=== PATIENT | female | born 1970 | race American Indian/Alaskan Native ===

== ENCOUNTER 2020-09-25 14:06 | Emergency (ER) | payer SELFPAY ==
--- NOTE | 2020-09-25 17:14 | Emergency Department Report ---
ED General Adult HPI - General Chief complaint: Allergic Reaction Stated complaint: ALLERGIC REACTION Time Seen by Provider: 09/25/20 14:55 Source: patient Mode of arrival: Ambulatory Limitations: No Limitations - History of Present Illness Initial comments: 49-year-old -[place] female patient presents with complaints of allergic reaction to eyebrow diet x3 days. Patient states the dye was applied to her eyebrows 5 days ago and she began experiencing itching and swelling to her eyebrows 2 days later. She states there is now mild pain and her eyes are swollen shut. She denies any chest pain, shortness of breath, difficulty swallowing, or rash. - Related Data Previous Rx's Medication Instructions Recorded Last Taken Type Famotidine [Pepcid] 20 mg PO BID 10 Days #20 tablet 09/25/20 Unknown Rx Loratadine 10 mg PO QDAY 10 Days #10 tablet 09/25/20 Unknown Rx Prednisone [predniSONE 10 mg 10 mg PO .TAPER #1 tab.ds.pk 09/25/20 Unknown Rx (6-Day Pack, 21 Tabs)] Allergies Allergy/AdvReac Type Severity Reaction Status Date / Time cephalexin [From Keflex] Allergy Itching Verified 09/25/20 14:18 ED Review of Systems ROS: Stated complaint: ALLERGIC REACTION Other details as noted in HPI Constitutional: denies: diaphoresis, fever, malaise, weakness ENT: denies: throat pain Respiratory: denies: cough, shortness of breath Cardiovascular: denies: chest pain Gastrointestinal: denies: abdominal pain, nausea, vomiting Skin: pruritus. denies: rash, change in color Neurological: denies: numbness, paresthesias Hematological/Lymphatic: denies: swollen glands ED Past Medical Hx - Past Medical History Previous Medical History?: No - Medications Home Medications: Home Medications Medication Instructions Recorded Confirmed Last Taken Type Famotidine [Pepcid] 20 mg PO BID 10 Days #20 tablet 09/25/20 Unknown Rx Loratadine 10 mg PO QDAY 10 Days #10 tablet 09/25/20 Unknown Rx Prednisone [predniSONE 10 mg 10 mg PO .TAPER #1 tab.ds.pk 09/25/20 Unknown Rx (6-Day Pack, 21 Tabs)] ED Physical Exam - General Limitations: No Limitations General appearance: alert, in no apparent distress - Head Head exam: Present: atraumatic, normocephalic - Eye Eye exam: Present: PERRL, EOMI, periorbital swelling, periorbital tenderness (Angioedema of the eyes noted bilaterally left worse than right without surrounding erythema or cellulitis). Absent: scleral icterus, conjunctival injection - ENT ENT exam: Present: normal exam, normal orophraynx - Neck Neck exam: Present: normal inspection, full ROM. Absent: lymphadenopathy - Respiratory Respiratory exam: Present: normal lung sounds bilaterally. Absent: respiratory distress - Cardiovascular Cardiovascular Exam: Present: regular rate, normal rhythm. Absent: systolic murmur, diastolic murmur, rubs, gallop - Extremities Exam Extremities exam: Present: normal inspection, full ROM - Neurological Exam Neurological exam: Present: alert, oriented X3, normal gait - Psychiatric Psychiatric exam: Present: normal affect, normal mood - Skin Skin exam: Present: warm, dry, intact, normal color. Absent: rash, erythema, ecchymosis ED Course Vital Signs 09/25/20 14:19 Temperature 98 F Pulse Rate 70 Respiratory 16 Rate Blood Pressure 167/98 [Right] O2 Sat by Pulse 98 Oximetry ED Medical Decision Making - Lab Data Result diagrams: 09/25/20 17:28 09/25/20 17:28 Lab Results 09/25/20 09/25/20 Range/Units 17:28 17:28 WBC 9.1 (4.5-11.0) K/mm3 RBC 4.12 (3.65-5.03) M/mm3 Hgb 12.2 (10.1-14.3) gm/dl Hct 34.6 (30.3-42.9) % MCV 84 (79-97) fl MCH 30 (28-32) pg MCHC 35 H (30-34) % RDW 14.3 (13.2-15.2) % Plt Count 285 (140-440) K/mm3 Lymph % (Auto) 32.7 (13.4-35.0) % [place] % (Auto) 6.5 (0.0-7.3) % Eos % (Auto) 2.2 (0.0-4.3) % Baso % (Auto) 0.4 (0.0-1.8) % Lymph # (Auto) 3.0 (1.2-5.4) K/mm3 [place] # (Auto) 0.6 (0.0-0.8) K/mm3 Eos # (Auto) 0.2 (0.0-0.4) K/mm3 Baso # (Auto) 0.0 (0.0-0.1) K/mm3 Seg Neutrophils % 58.2 (40.0-70.0) % Seg Neutrophils # 5.3 (1.8-7.7) K/mm3 Sodium 140 (137-145) mmol/L Potassium 4.4 (3.6-5.0) mmol/L Chloride 103.9 (98-107) mmol/L Carbon Dioxide 24 (22-30) mmol/L Anion Gap 17 mmol/L BUN 12 (7-17) mg/dL Creatinine 0.7 (0.6-1.2) mg/dL Estimated GFR > 60 ml/min BUN/Creatinine Ratio 17 % Glucose 84 (65-100) mg/dL Calcium 9.6 (8.4-10.2) mg/dL Total Bilirubin 0.30 (0.1-1.2) mg/dL AST 43 H (5-40) units/L ALT 48 (7-56) units/L Alkaline Phosphatase 97 (35-129) units/L Total Protein 7.2 (6.3-8.2) g/dL Albumin 4.4 (3.9-5) g/dL Albumin/Globulin Ratio 1.6 % - Medical Decision Making 49-year-old -[place] female patient presents with complaints of allergic reaction to eyebrow diet x3 days. Patient states the dye was applied to her eyebrows 5 days ago and she began experiencing itching and swelling to her eyebrows 2 days later. She states there is now mild pain and her eyes are swollen shut. She denies any chest pain, shortness of breath, difficulty swallowing, or rash. Patient given IV Decadron, Pepcid, and Benadryl. Swelling around eyes has improved. Swelling around eyes appears to be dependent given improvement with lying back. Itching is controlled. Topical triamcinolone also applied. CBC, CMP, ESR normal. She continues to deny any chest pain, shortness of breath, dysphagia or other symptoms. She is well-appearing and stable for discharge home. Prescription for prednisone, Pepcid, and Claritin given for home. Discussed signs and symptoms that should prompt immediate return to the emergency department in detail with patient who verbalized understanding. Follow-up with primary care provider in 3 days. Critical care attestation.: If time is entered above; I have spent that time in minutes in the direct care of this critically ill patient, excluding procedure time. ED Disposition Clinical Impression: Contact allergic reaction, Angioedema Disposition: - TO HOME OR SELFCARE Is pt being admited?: No Condition: Stable Instructions: Contact Dermatitis, Angioedema Prescriptions: Loratadine 10 mg PO QDAY 10 Days #10 tablet Famotidine [Pepcid] 20 mg PO BID 10 Days #20 tablet Prednisone [predniSONE 10 mg (6-Day Pack, 21 Tabs)] 10 mg PO .TAPER #1 tab.ds.pk Referrals: PRIMARY CARE, [Primary Care Provider] - 3-5 Days
[2020-09-25] MEDS ORDERED: dexAMETHasone 20 MG/5 ML VIAL IV ONE (17:15)
[2020-09-25] MEDS ORDERED: diphenhydrAMINE 50 MG/ML VIAL IV ONE (17:15)
[2020-09-25 18:33] LABS: Alanine Aminotransferase 48 units/L (7-56); Albumin 4.4 g/dL (3.9-5); BUN/Creatinine Ratio 17; Blood Urea Nitrogen 12 mg/dL (7-17); Calcium 9.6 mg/dL (8.4-10.2); Hemolysis Index 10
[2020-09-25 18:34] LABS: Basophils % (Auto) 0.4 % (0.0-1.8); Eosinophils # (Auto) 0.2 K/mm3 (0.0-0.4); Eosinophils % (Auto) 2.2 % (0.0-4.3); Hematocrit 34.6 % (30.3-42.9); Hemoglobin 12.2 gm/dl (10.1-14.3); Lymphocytes % (Auto) 32.7 % (13.4-35.0); Mean Corpuscular HGB Conc 35 % (30-34); Mean Corpuscular Volume 84 fl (79-97); Monocytes # (Auto) 0.6 K/mm3 (0.0-0.8); Monocytes % (Auto) 6.5 % (0.0-7.3); Platelet Count 285 K/mm3 (140-440); Red Blood Count 4.12 M/mm3 (3.65-5.03); Red Cell Distribution Width 14.3 % (13.2-15.2)
[2020-09-25] MEDS ORDERED: FAMOTIDINE 20 MG/2 ML INJ IV ONE (18:39)
[2020-09-25] MEDS ORDERED: TRIAMCINOLONE 0.1% CREAM 15 GM TP STA (19:14)
[2020-09-25 19:26] LABS: Erythrocyte Sedimentation Rate 18 mm/Hr (0-20)
[2020-09-25 20:46] VITALS: BP 144/73
== END 2020-09-25 20:53 | disposition home or self-care (01) ==
LOC: ED 14:06
DX: T78.3XXA Angioneurotic edema, initial encounter (principal); L23.9 Allergic contact dermatitis, unspecified cause; Z88.8 Allergy status to other drugs, medicaments and biological substances; Z79.899 Other long term (current) drug therapy
CPT/HCPCS: 36415; 80053; 85025; 85652; 96374; 96375; 99283; J1100; J1200